=== PATIENT | male | born 1940 | race Two or more races ===

== ENCOUNTER 2017-11-15 16:42 | Outpatient (CLI) | payer OTHER ==
[~2017-11-15] VITALS: Ht 165.1 cm; Wt 76.2 kg
== END 2017-11-15 17:05 | disposition home or self-care (01) ==
LOC: OFIC 805 16:42
DX: H60.8X1 Other otitis externa, right ear (principal); H61.22 Impacted cerumen, left ear

== ENCOUNTER 2017-11-30 09:21 | Outpatient (CLI) | payer OTHER ==
[~2017-11-30] VITALS: Ht 152.4 cm; Wt 76.2 kg
== END 2017-11-30 09:40 | disposition home or self-care (01) ==
LOC: OFIC 805 09:21
DX: H60.8X1 Other otitis externa, right ear (principal); H61.21 Impacted cerumen, right ear; H90.41 Sensorineural hearing loss, unilateral, right ear, with unrestricted hearing on the contralateral side

== ENCOUNTER 2021-07-03 07:10 | Outpatient (CLI) | payer OTHER | END 2021-07-03 07:12 | disposition home or self-care (01) | LOC: TOM 07:10 | PROVIDERS: ATTEND Internal Medicine | DX: R42 Dizziness and giddiness (principal) ==

== ENCOUNTER 2021-08-11 08:00 | Outpatient (CLI) | payer OTHER | END 2021-08-11 08:30 | disposition home or self-care (01) | LOC: PPH VACUNA 08:00 | PROVIDERS: ATTEND Emergency Medicine Pediatric Emergency Medicine | DX: Z23 Encounter for immunization (principal) ==

== ENCOUNTER 2022-05-23 16:25 | Emergency (ER) | payer OTHER ==
[~2022-05-23] VITALS: Ht 165.1 cm; Wt 68.0 kg
[2022-05-23] MEDS ORDERED: CARVEDILOL12.5 MG (23:38)
[2022-05-23] MEDS ORDERED: GLIPIZIDE ER10 MG PO (23:38)
== END 2022-05-24 00:03 | disposition home or self-care (01) ==
LOC: ER 16:25
DX: S00.93XA Contusion of unspecified part of head, initial encounter (principal); W19.XXXA Unspecified fall, initial encounter; Y93.9 Activity, unspecified; Y92.9 Unspecified place or not applicable; Y99.9 Unspecified external cause status; E11.65 Type 2 diabetes mellitus with hyperglycemia; Z79.84 Long term (current) use of oral hypoglycemic drugs; Z88.0 Allergy status to penicillin; Z88.2 Allergy status to sulfonamides; I10 Essential (primary) hypertension

== ENCOUNTER 2023-03-30 10:04 | Outpatient (CLI) | payer OTHER ==
[~2023-03-30 10:04] MED LIST: CARVEDILOL12.5 MG; GLIPIZIDE ER10 MG PO
== END 2023-03-30 10:10 | disposition home or self-care (01) ==
LOC: SONOGRAMA 10:04
PROVIDERS: ATTEND Internal Medicine
DX: R85.1 Abnormal level of hormones in specimens from digestive organs and abdominal cavity (principal); R32 Unspecified urinary incontinence; Z88.0 Allergy status to penicillin; Z88.2 Allergy status to sulfonamides

== ENCOUNTER 2024-07-02 17:34 | Emergency (ER) | payer OTHER ==
[~2024-07-02] VITALS: Ht 170.2 cm; Wt 81.6 kg
[2024-07-02] MEDS ORDERED: SYNTHROID50 MCG PO (18:16)
[2024-07-02] MEDS ORDERED: COZAAR100 MG PO (18:17)
[2024-07-02] MEDS ORDERED: GLIPIZIDE XL5 MG PO (18:17)
[2024-07-02] MEDS ORDERED: PRILOSEC OTC20 MG PO (18:17)
[2024-07-02] MEDS ORDERED: NIFEDIPINE ER30 M1 PO (18:17)
[2024-07-02] MEDS ORDERED: SYNJARDY 5-5001 EACH PO (18:17)
[2024-07-02] MEDS ORDERED: NIFEDIPINE 10 MG CAPSULE PO ONE (19:15)
[2024-07-02 20:43] LABS: HEMOGLOBIN 13.7 g/dL (13-16.00); MEAN CELL VOLUME 83.3 fL (80.0-100.00); MEAN CORPUSCULAR HEMOGLOBIN 27.3 pg (27.00-32.0); MEAN CORPUSCULAR HGB CONC 32.7 g/dl (32.0-36.0); PLATELET COUNT 278 K/uL (150-450); RED BLOOD COUNT 5.04 M/uL (4.00-6.00); RED CELL DISTRIBUTION WIDTH 14.8 % (11.5-14.5)
[2024-07-02 20:54] LABS: PH,URINE 7.5 (5.0-8.0); URINE APPEARANCE Clear; URINE BILIRRUBIN Negative (NEGATIVE); URINE BLOOD Negative; URINE COLOR Yellow; URINE KETONE Negative (NEGATIVE); URINE LEUKOCYTE Negative; URINE NITRATE Negative; URINE PROTEIN Negative (NEGATIVE); URINE UROBILINOGEN 0.2 E.U./dl
[2024-07-02 20:57] LABS: INR 1.05; PARTIAL THROMBOPLASTIN TIME 28.6 SECONDS (22.0-34.0); PROTHROMBIN TIME 11.4 SECONDS (9.0-11.5)
[2024-07-02 20:58] LABS: URINE BACTERIA 24.3 uL (0.0-1933)
[2024-07-02 21:02] LABS: ALBUMIN 3.2 gm/dL (3.4-5.0); BILIRUBIN TOTAL 0.29 mg/dL (0.3-1.2); CALCIUM 8.9 mg/dL (8.5-10.1); CREATININE SERUM 1.21 mg/dL (0.70-1.30); GFR 57.41; GLOBULINA 3.4 G/DL (2.4-3.5); POTASSIUM 4.21 mEq/L (3.5-5.1); TOTAL PROTEIN 6.6 gm/dL (6.4-8.2)
[2024-07-02 21:21] LABS: URINE EPITHELIAL CELLS 0.3 uL (0.0-38.8); URINE GLUCOSE 500 MG/DL (NEGATIVE); URINE WBC 0.7 uL (0.0-23.2)
[2024-07-02] MEDS ORDERED: CLONAZEPAM 0.5 MG TABLET PO ONE (23:15)
[2024-07-03] MEDS ORDERED: CLONAZEPAM0.5 M1 PO (01:42)
[2024-07-03] MEDS ORDERED: OMEPRAZOLE MAGN20 MG PO (01:43)
== END 2024-07-03 05:43 ==
LOC: ER 17:34
PROVIDERS: General Practice
DX: G81.91 Hemiplegia, unspecified affecting right dominant side (principal); R20.0 Anesthesia of skin; I10 Essential (primary) hypertension; E03.8 Other specified hypothyroidism; E11.9 Type 2 diabetes mellitus without complications; Z79.84 Long term (current) use of oral hypoglycemic drugs; Z88.0 Allergy status to penicillin; Z88.2 Allergy status to sulfonamides; Z88.6 Allergy status to analgesic agent